=== PATIENT | male | born 1960 | race Caucasian/White ===

== ENCOUNTER 2018-04-20 17:09 | Emergency (ER) | payer BC ==
[2018-04-20 17:42] VITALS: BP 134/74
--- NOTE | 2018-04-20 17:57 | UC ---
Truncal Trauma HPI - HPI Summary HPI Summary: Slipped in the tub and landed on the left anterior chest wall. Pain slowly improving. Large bruising. - History Of Current Complaint Chief Complaint: UCUpperExtremity Stated Complaint: S/P FALL RIBS Time Seen by Provider: 04/20/18 17:47 Hx Obtained From: Patient Onset/Duration: Sudden Onset, Lasting Weeks - 1, Still Present - but improving Onset Of Pain: Immediate Severity Initially: Severe Severity Currently: Mild Pain Intensity: 3 Mechanism Of Injury: Blunt Trauma, Fall From A Standing Position Aggravating Factor(s): Movement, Deep Breathing, Cough Alleviating factor(s): Rest, OTC Medication Associated Signs And Symptoms: Positive: Chest Pain. Negative: SOB, Abdominal Pain - Allergies/Home Medications Allergies/Adverse Reactions: Allergies Allergy/AdvReac Type Severity Reaction Status Date / Time No Known Allergies Allergy Verified 04/20/18 17:42 Home Medications: Home Medications Aspirin [Aspir-Low] 81 mg PO DAILY 04/20/18 [History Confirmed 04/20/18] Ibuprofen TAB* [Motrin TAB* 600 MG] 600 mg PO Q6H PRN 04/20/18 [History Confirmed 04/20/18] Lisinopril [Lisinopril 30 MG-] 30 mg PO DAILY 04/20/18 [History Confirmed ] Lovastatin [Altoprev] 40 mg PO DAILY 04/20/18 [History Confirmed 04/20/18] Sitagliptin Phosphate [Januvia] 100 mg PO DAILY 04/20/18 [History Confirmed 01/02] glipiZIDE [Glipizide ER] 20 mg PO DAILY 04/20/18 [History Confirmed 04/20/18] metFORMIN* [Glucophage 1000 MG TAB *] 1,000 mg PO 0800,1700 04/20/18 [History Confirmed 04/20/18] PMH/Surg Hx/FS Hx/Imm Hx Endocrine History: Diabetes, Dyslipidemia Cardiovascular History: Hypertension - Surgical History Surgical History: Yes Surgery Procedure, Year, and Place: R shoulder - Social History Occupation: Employed Full-time Lives: With Family Alcohol Use: Weekly Substance Use Type: None Smoking Status (MU): Never Smoked Tobacco Have You Smoked in the Last Year: No Review of Systems Skin: Bruising Cardiovascular: Chest Pain Is Patient Immunocompromised?: No All Other Systems Reviewed And Are Negative: Yes Physical Exam Triage Information Reviewed: Yes Appearance: Well-Appearing, Pain Distress - mild, Obese Vital Signs: Initial Vital Signs Temp 97.5 F 04/20/18 17:35 Pulse 75 04/20/18 17:35 Resp 16 04/20/18 17:35 BP 134/74 04/20/18 17:35 Pulse Ox 100 04/20/18 17:35 Vital Signs Reviewed: Yes Eyes: Positive: Conjunctiva Clear Neck exam: Normal Respiratory: Positive: Lungs clear. Negative: Chest non-tender - Tender anterolateral left chest. No posterior rib pain. Cardiovascular Exam: Normal Musculoskeletal Exam: Normal Neurological Exam: Normal Psychological Exam: Normal Skin: Positive: rashes - erythematous patches on the inner upper arms and posterior upper legs bilaterally, Other - bruising on the left side of the abdomen at the belt line. Truncal Trauma Course/Dx - Differential Dx/Diagnosis Differential Diagnosis/HQI/PQRI: Abdominal Wall Contusion, Chest Wall Contusion , Pulmonary Contusion, Rib Fracture Provider Diagnoses: Contusion chest wall. Photodermatitis. Discharge - Sign-Out/Discharge Documenting (check all that apply): Patient Departure - Discharge Plan Condition: Stable Disposition: HOME Patient Education Materials: Rib Contusion (ED), Photosensitivity (ED) Referrals: Usman Perez MD [Primary Care Provider] - Additional Instructions: Try Blue Lizard Sunscreen to prevent future sun reactions. - Billing Disposition and Condition Condition: STABLE Disposition: Home
== END 2018-04-20 18:22 | disposition home or self-care (01) ==
LOC: UCCORT 17:09
DX: S20.219A Contusion of unspecified front wall of thorax, initial encounter (principal); W18.2XXA Fall in (into) shower or empty bathtub, initial encounter; Y93.9 Activity, unspecified; Y99.9 Unspecified external cause status; L56.8 Other specified acute skin changes due to ultraviolet radiation; I10 Essential (primary) hypertension; E78.5 Hyperlipidemia, unspecified
CPT/HCPCS: 99201; G0463